=== PATIENT | female | born 1955 | race Two or more races ===

== ENCOUNTER 2025-03-16 12:33 | Inpatient (IN) | payer MEDICARE, OTHER ==
[~2025-03-16] VITALS: Ht 175.3 cm; Wt 49.2 kg
[2025-03-16] MEDS ORDERED: oxyCODONE/APAP (5/325 MG) 1 UDTAB TABLET ONE (13:39)
[2025-03-16] MEDS: oxyCODONE/APAP (5/325 MG) 1 UDTAB TABLET PO ONE (13:45)
[2025-03-16 13:53] LABS: PLATELET COUNT (AUTO) 207 K/uL (150-450); RED BLOOD CELL COUNT(AUTO) 4.83 MIL/uL (4.0-5.2); RED CELL DISTRIBUTION WIDTH 14.6 % (11.5-15.0); WHITE BLOOD COUNT (AUTO) 5.0 K/uL (4.3-11.0)
[2025-03-16 14:01] LABS: CALCIUM, SERUM 8.6 mg/dL (8.5-10.1); CREATININE 0.6 mg/dL (0.6-1.3); SODIUM SERUM 137 mmol/L (136-145); UREA NITROGEN, BLOOD 8 mg/dL (7-18)
[2025-03-16 14:04] LABS: INR 0.97 (0.91-1.10)
[2025-03-16 14:13] LABS: ASPARTATE AMINOTRANSFERASE 22 U/L (15-37); NT-PRO BNP 115 pg/mL (0-125); TOTAL PROTEIN, SERUM 6.8 g/dL (6.4-8.2)
[2025-03-16 15:52] LABS: APPEARANCE,URINE CLEAR (CLEAR); BLOOD, URINE Small Ery/uL (NEGATIVE); LEUKOCYTE ESTERASE ,URINE Trace (NEGATIVE); NITRITE, URINE NEGATIVE (NEGATIVE); UGLUCOSE Negative (NEGATIVE)
[2025-03-16 16:14] LABS: ADD URINE CULTURE NO; SQUAMOUS EPITHELIAL CELL,UR Few /HPF (None Seen)
[2025-03-16] MEDS ORDERED: Z GUARD REMEDY 4 OZ OINT TP PRN (16:30)
[2025-03-16] MEDS ORDERED: MAGNESIUM HYDROXIDE 30 ML UDC PO PRN (16:30)
[2025-03-16] MEDS ORDERED: MAG HYDROX/AL HYDROX/SIMETH 30 ML UDC PO PRN (16:30)
[2025-03-16] MEDS: MORPHINE SULFATE INJ 2 MG/ML DISP.SYRIN IV PRN (17:37)
[2025-03-16] MEDS ORDERED: CYCL10TA9 PO (17:52)
[2025-03-16] MEDS ORDERED: ATOR20TA PO (17:52)
[2025-03-17] MEDS: oxyCODONE/APAP (5/325 MG) 1 UDTAB TABLET PO PRN (00:26)
[2025-03-17] MEDS: TEMAZEPAM 7.5 MG CAPSULE PO PRN (00:36)
[2025-03-17 07:59] LABS: PLATELET COUNT (AUTO) 210 K/uL (150-450); RED BLOOD CELL COUNT(AUTO) 5.02 MIL/uL (4.0-5.2); RED CELL DISTRIBUTION WIDTH 15.0 % (11.5-15.0); WHITE BLOOD COUNT (AUTO) 6.5 K/uL (4.3-11.0)
[2025-03-17 08:00] VITALS: BP 126/60; TEMP 97.7; O2SAT 96
[2025-03-17 08:21] LABS: CALCIUM, SERUM 9.0 mg/dL (8.5-10.1); CREATININE 0.7 mg/dL (0.6-1.3); PHOSPHORUS 4.2 mg/dL (2.5-4.9); SODIUM SERUM 142.0 mmol/L (136-145); UREA NITROGEN, BLOOD 13.0 mg/dL (7-18)
[2025-03-17] MEDS: ONDANSETRON HCL/PF 4 MG/2 ML VIAL IVP PRN (08:26)
[2025-03-17] MEDS: LORAZEPAM 0.5 MG TABLET PO PRN (11:51)
[2025-03-17] MEDS ORDERED: GADOTERATE MEGLUMINE 5 MMOL/10 ML VIAL IV ONE (14:49)
[2025-03-17 16:00] VITALS: BP 101/65; TEMP 97.7; O2SAT 95
[2025-03-17] MEDS: CYCLOBENZAPRINE 10 MG TABLET PO PRN (18:27)
[2025-03-17] MEDS: ACETAMINOPHEN 325 MG TABLET PO PRN (18:27)
[2025-03-17 21:47] VITALS: BP 108/64; TEMP 97.8; O2SAT 96
[2025-03-18 07:42] LABS: PLATELET COUNT (AUTO) 194 K/uL (150-450); RED BLOOD CELL COUNT(AUTO) 4.87 MIL/uL (4.0-5.2); RED CELL DISTRIBUTION WIDTH 14.7 % (11.5-15.0); WHITE BLOOD COUNT (AUTO) 4.9 K/uL (4.3-11.0)
[2025-03-18 07:49] LABS: CALCIUM, SERUM 8.4 mg/dL (8.5-10.1); CREATININE 0.7 mg/dL (0.6-1.3); SODIUM SERUM 143.0 mmol/L (136-145); UREA NITROGEN, BLOOD 13.0 mg/dL (7-18)
[2025-03-18 08:00] VITALS: BP 123/72; TEMP 97.5; O2SAT 95
[2025-03-18] MEDS ORDERED: dexAMETHasone 1 MG/ML UDC PO SCH (09:30)
[2025-03-18] MEDS: GABAPENTIN 300 MG CAPSULE PO SCH (10:05)
[2025-03-18] MEDS: CYCLOBENZAPRINE 10 MG TABLET PO SCH (10:06)
[2025-03-18 16:00] VITALS: BP 121/80; TEMP 97.7; O2SAT 95
[2025-03-18 20:00] VITALS: BP 107/64; TEMP 97.5; O2SAT 95
[2025-03-19 08:00] VITALS: BP 120/74; TEMP 97.7; O2SAT 97
[2025-03-19 16:00] VITALS: BP 109/71; TEMP 98.8; O2SAT 96
[2025-03-19 20:00] VITALS: BP 124/68; TEMP 97.7; O2SAT 96
[2025-03-20 06:32] LABS: PLATELET COUNT (AUTO) 200 K/uL (150-450); RED BLOOD CELL COUNT(AUTO) 4.52 MIL/uL (4.0-5.2); RED CELL DISTRIBUTION WIDTH 14.7 % (11.5-15.0); WHITE BLOOD COUNT (AUTO) 7.9 K/uL (4.3-11.0)
[2025-03-20 06:33] LABS: CALCIUM, SERUM 8.5 mg/dL (8.5-10.1); CREATININE 0.6 mg/dL (0.6-1.3); SODIUM SERUM 141.0 mmol/L (136-145); UREA NITROGEN, BLOOD 16.0 mg/dL (7-18)
[2025-03-20 08:00] VITALS: BP 118/82; TEMP 98.1; O2SAT 98
[2025-03-20] MEDS: POLYETHYLENE GLYCOL 3350 17 GM POWD.PACK PO SCH (13:10)
[2025-03-20 16:00] VITALS: BP 120/76; TEMP 97.9; O2SAT 97
[2025-03-20 20:00] VITALS: BP 123/79; TEMP 98.4; O2SAT 96
[2025-03-21 08:00] VITALS: BP 120/77; TEMP 98.1; O2SAT 97
[2025-03-21] MEDS: DOCUSATE SODIUM 100 MG CAPSULE PO SCH (08:53)
[2025-03-21] MEDS ORDERED: DOCU100C36 PO (18:59)
[2025-03-21] MEDS ORDERED: BACL5TAB PO (18:59)
[2025-03-21] MEDS ORDERED: GABA300C PO (18:59)
[2025-03-21] MEDS ORDERED: DEXA4TAB2 PO (18:59)
== END 2025-03-21 20:24 | disposition home or self-care (01) | DRG 552 ==
LOC: ER 13:37 → MED 16:39
PROVIDERS: ADMIT Internal Medicine; ATTEND Internal Medicine
DX: M51.26 Other intervertebral disc displacement, lumbar region (principal); I11.0 Hypertensive heart disease with heart failure; I50.9 Heart failure, unspecified; E78.5 Hyperlipidemia, unspecified; J44.9 Chronic obstructive pulmonary disease, unspecified; R53.1 Weakness; G89.29 Other chronic pain; M19.90 Unspecified osteoarthritis, unspecified site; Z79.899 Other long term (current) drug therapy; R32 Unspecified urinary incontinence; M41.9 Scoliosis, unspecified
CPT/HCPCS: 36415; 71045-TC; 72129-TC; 72132-TC; 72148-TC; 72157-TC; 80048-TC; 80076-TC; 81001; 83690-TC; 83735-TC; 83880; 84100-TC; 84484-TC; 85025-TC; 85730-TC; 87086-TC; 97116-TC; 97530-TC; 97535-TC; A9575; G0378; J2270; J2405; J8540